=== PATIENT | male | born 1985 | race Caucasian/White ===

== ENCOUNTER 2022-03-22 19:25 | Emergency (ER) | payer OTHER, MEDICAID, SELFPAY ==
[2022-03-22 19:39] VITALS: BP 118/86; PULSE 100; RESP 18; TEMP 36.4; O2SAT 96; BMI 23.6
--- NOTE | 2022-03-22 19:42 | ED.GENADULT ---
HPI - General Adult General Chief complaint: ETOH/Substance Use <BEN Colin - Last Filed: 03/23/22 01:28> Stated complaint: ?etoh/abd pain <BEN Colin - Last Filed: 03/23/22 01:28> Time Seen by Provider: 03/22/22 19:42 <BEN Colin Last Filed: 03/23/22 01:28> Source: patient and EMS <BEN Colin Last Filed: 03/23/22 01:28> Mode of arrival: EMS <BEN Colin Last Filed: 03/23/22 01:28> Limitations: no limitations <BEN Colin Last Filed: 03/23/22 01:28> History of Present Illness HPI narrative: Patient is a 36 year old male presenting to the emergency department today with alcohol intoxication. Patient states that he went to [facility] for detox and they were concerned about his intoxication so they sent him here for evaluation. Patient denies any dizziness, lightheadedness, abdominal pain, nausea, vomiting, fever, chills, blurry vision, double vision, loss of vision, chest pain, difficulty breathing, shortness of breath, back pain, night sweats, pain with urination, increased urinary frequency, increased urinary urgency, blood in his urine or stool, syncope or a near syncopal episode, recent trauma or falls, bowel incontinence, bladder incontinence, bowel retention, bladder retention, or any other complaints at this time. <BEN Colin - Last Filed: 03/23/22 01:28> Associated symptoms: denies other symptoms <BEN Colin Last Filed: 03/23/22 01:28> Treatments prior to arrival: none <BEN Colin Last Filed: 03/23/22 01:28> Related Data Home medications: Home Medications Medication Instructions Recorded Confirmed hydroxyzine HCl 25 mg tablet 1 tab PO TID 03/23/22 03/23/22 ibuprofen 400 mg tablet 1 tab PO Q6H PRN Pain 03/23/22 03/23/22 multivitamin-iron sulfate 15 1 tab PO DAILY 03/23/22 03/23/22 mg-folic acid 400 mcg tablet (Tab-A-Katia Multivitamin w-iron) <BEN Colin Last Filed: 03/23/22 01:28> Allergies/adverse reactions: Allergies Allergy/AdvReac Type Severity Reaction Status Date / Time No Known Allergies Allergy Verified 03/22/22 20:05 <BEN Colin Last Filed: 03/23/22 01:28> Review of Systems Constitutional: Constitutional: Reports no additional constitutional complaints, Denies chills, Denies fever(s) and Denies night sweats <BEN Colin Last Filed: 03/23/22:28> Eyes: Eyes: Reports no additional eye complaints, Denies blurry vision, Denies change in vision, Denies diplopia, Denies eye discharge, Denies loss of vision and Denies eye pain <BEN Colin Last Filed: 03/23/22:28> ENT: Denies dizziness <BEN Colin Last Filed: 03/23/22 01:28> Cardiovascular: Cardiovascular: Reports no additional cardiovascular complaints, Denies chest pain, Denies lightheadedness, Denies Loss of Consciousness and Denies dyspnea <BEN Colin Last Filed: 03/23/22 01:28> Respiratory: Respiratory: Reports no additional respiratory complaints and Denies dyspnea <BEN Colin Last Filed: 03/23/22:28> Gastrointestinal: Gastrointestinal: Reports no additional gastrointestinal complaints, Denies abdominal pain, Denies melena, Denies hematochezia, Denies change in bowel habits and Denies change in stool character <BEN Colin Last Filed: 03/23/22:28> Genitourinary: Genitourinary: Reports no additional male genitourinary complaints, Denies hematuria, Denies oliguria, Denies difficulty urinating, Denies dysuria, Denies urinary frequency, Denies urinary hesitancy, Denies urinary incontinence and Denies urinary urgency <BEN Colin Last Filed: 03/23/22 01:28> Musculoskeletal: Musculoskeletal: Reports no additional musculoskeletal complaints, Denies numbness and Denies tingling <BEN Colin Last Filed: 03/23/22 01:28> Neurologic: Denies dizziness, Denies loss of vision, Denies numbness and Denies tingling <BEN Colin - Last Filed: 03/23/22 01:28> Psychiatric: Psychiatric: Reports no additional psychiatric complaints <BEN Colin - Last Filed: 03/23/22 01:28> Endocrine: Endocrine: Reports no additional endocrine complaints <BEN Colin - Last Filed: 03/23/22 01:28> Hematologic/Lymphatic: Hematologic/Lymphatic: Reports no additional hematologic/lymphatic complaints <BEN Colin - Last Filed: 03/23/22 01:28> Allergic/Immunologic: Allergic/Immunologic: Reports no additional allergic/immunologic complaints <BEN Colin - Last Filed: 03/23/22 01:28> PMFSH Past Medical History Attestation statement: The following information was validated with the patient. <BEN Colin - Last Filed: 03/23/22 01:28> Source: old records reviewed <BEN Colin - Last Filed: 03/23/22 01:28> Social History Social History: Social History Advance Directives: No Advance Directives Information Provided: Yes <BEN Colin - Last Filed: 03/23/22 01:28> Physical Exam ED Vital Signs: Vital Signs - 24 hr 03/22/22 19:39 03/23/22 06:15 03/23/22 09:55 Temperature 97.5 F 97.8 F Pulse Rate 100 100 Respiratory Rate 18 16 18 Blood Pressure 118/86 134/97 H Pulse Oximetry 96 97 Oxygen Delivery Method Room Air Room Air BMI result Body Mass Index 23.6 <BEN Colin - Last Filed: 03/23/22 01:28> Vital Signs - 24 hr 03/22/22 19:39 03/23/22 06:15 03/23/22 09:55 Temperature 97.5 F 97.8 F Pulse Rate 100 100 Respiratory Rate 18 16 18 Blood Pressure 118/86 134/97 H Pulse Oximetry 96 97 Oxygen Delivery Method Room Air Room Air BMI result Body Mass Index 23.6 <Livier Diaz MD - Last Filed: 03/23/22 11:34> Const General: cooperative, no acute distress, alert and awake <BEN Colin - Last Filed: 03/23/22 01:28> Nutritional Appearance: well nourished <Devorah Davilaamish AR - Last Filed: 03/23/22:28> Orientation/consciousness: patient oriented x3 <Devorah Davilaamish AR - Last Filed: 03/23/22:28> Limitations: no limitations <Devorah Davilaamish AR - Last Filed: 03/23/22:28> HENMT Head: Yes normal to inspection and Yes atraumatic <Devorah Davilaamish AR - Last Filed: 03/23/22:28> Ears: hearing grossly normal bilaterally and external ears normal <Devorah Davilaamish AR - Last Filed: 03/23/22:28> General nose exam: Normal external nose present, no nasal discharge noted and no epistaxis <Devorah Davilaamish AR - Last Filed: 03/23/22:28> Face and sinus: Yes normal facial exam, No abrasion and No laceration <Devorahlauren Davilaamish AR - Last Filed: 03/23/22:28> Mouth: Normal oral and palatal mucosa present, no drooling and no muffled voice <Devorah Davilaamish AR - Last Filed: 03/23/22:28> Eyes General: appearance normal, both eyes and all related structures <Devorah Davilaamish AR - Last Filed: 03/23/22:28> Periorbital: periorbital findings normal <Devorah Davilaamish AR - Last Filed: 03/23/22:28> Eyelids: Yes eyelids normal <Devorahlauren Davilaamish AR - Last Filed: 03/23/22:28> Conjunctivae: conjunctivae normal <Devorah Davilaamish AR - Last Filed: 03/23/22:28> Pupils: Equal, round and reactive pupils present <Devorah Trace PA - Last Filed: 03/23/22:28> EOM: EOMs intact bilaterally <Devorah DavilaBEN wellington - Last Filed: 03/23/22 01:28> Neck Neck: Yes normal visual inspection, Yes full ROM and Yes no lymphadenopathy <Devorah BEN Woodward - Last Filed: 03/23/22 01:28> Chest Chest palpation & inspection: normal inspection of the chest <Devorah WoodwardBEN - Last Filed: 03/23/22:28> Resp Effort & Inspection: normal respiratory effort and able to speak in complete sentences <Devorah Woodward BEN - Last Filed: 03/23/22:28> Auscultation: clear to auscultation bilaterally <Devorah Woodward PA - Last Filed: 03/23/22:28> Cardio Rate: regular rate <Devorah Woodward PA - Last Filed: 03/23/22:28> Rhythm: regular rhythm <Devorah Woodward PA - Last Filed: 03/23/22:28> GI Inspection: Yes normal to inspection <Devorah Woodward BEN - Last Filed: 03/23/22:28> Palpation (GI): Soft to palpation, not firm, nontender and no guarding <Devorah Woodward PA - Last Filed: 03/23/22:28> Neuro General: patient oriented x3 and moves all extremities <Devorah Woodward PA - Last Filed: 03/23/22:28> Cranial nerves: Yes Equal, round and reactive pupils present <Devorah Woodward PA - Last Filed: 03/23/22:28> Cognition (Neuro): normal cognition <Devorah Woodward BEN - Last Filed: 03/23/22:28> Motor exam (neuro): 5/5 motor strength present throughout <Devorah Woodward PA - Last Filed: 03/23/22:28> Sensory Exam: Normal double simultaneous stimulation for sensation <Devorah Woodward PA - Last Filed: 03/23/22:28> Coordination: [id number] test normal <Devorah Woodward PA - Last Filed: 03/23/22:28> Extrem General: Yes normal to inspection, Yes full ROM and Yes capillary refill normal <Devorah Woodward PA - Last Filed: 03/23/22:28> Psych Appearance: grossly normal <Devorah Woodward PA - Last Filed: 03/23/22 01:28> Mental Status: mental status grossly normal <Devorah WoodwardBEN - Last Filed: 03/23/22:28> Affect: normal affect <DevorahBEN Portillo - Last Filed: 03/23/22:28> Attitude: cooperative <BEN Colin - Last Filed: 03/23/22:28> Thought process: Normal thought process present <BEN Colin - Last Filed: 03/23/22:28> Thought content: Normal thought content present <BEN Colin - Last Filed: 03/23/22:28> Insight: Good insight present (Psych) <BEN Colin - Last Filed: 03/23/22:28> Course Reevaluation(s) Reevaluation #1: No events overnight. 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 <Livier Diaz MD - Last Filed: 03/23/22 11:34> Time: 11:33 <Livier Diaz MD - Last Filed: 03/23/22 11:34> Medical Decision Making MDM Narrative Medical decision making narrative: Patient is a 36 year old male presenting to the emergency department today with acute alcohol intoxication. Patient's physical exam was unremarkable. Patient's blood work was unremarkable. I explained my physical exam findings as well as all test results to the patient. I answered all questions asked by the patient. Patient is medically cleared and awaiting N/CARE team evaluation. <BEN Colin - Last Filed: 03/23/22 01:28> Differential Diagnosis Differential Diagnosis: alcohol intoxication <BEN Colin - Last Filed: 03/23/22:28> Medical Records Medical records reviewed: Yes I reviewed the patient's medical records. <BEN Colin - Last Filed: 03/23/22:28> Lab Data Lab results reviewed: Yes I reviewed the patient's lab results. <BEN Colin Last Filed: 03/23/22 01:28> Result diagrams: : 03/22/22 20:34 03/22/22 20:34 <BEN Colin - Last Filed: 03/23/22 01:28> Labs: Lab Results 03/22/22 03/22/22 03/22/22 Range/Units 20:00 20:34 20:34 WBC 6.5 (4.8-10.8) X10*3/uL RBC 5.30 (4.60-5.80) X10*6/uL Hgb 16.3 (14.0-18.0) g/dl Hct 46.2 (42.0-52.0) % MCV 87.2 (80.0-98.0) fL MCH 30.8 (27.0-33.0) pg MCHC 35.3 (31.0-36.0) g/dl RDW 13.8 (11.0-16.0) % Plt Count 204 (160-400) X10*3/uL MPV 9.0 L (9.4-12.4) fL Immature Gran % (Auto) 0.2 (0.0-0.4) % Neut % (Auto) 61.6 (45-73) % Lymph % (Auto) 28.1 (20-40) % Dickson % (Auto) 8.0 (2-11) % Eos % (Auto) 1.5 (0-4) % Baso % (Auto) 0.6 (0-2) % Lymph # (Auto) 1.8 (1.2-4.9) X10*3/uL Dickson # (Auto) 0.5 (0.1-1.2) X10*3/uL Eos # (Auto) 0.1 (0.0-0.4) X10*3/uL Baso # (Auto) 0.0 (0.0-0.2) X10*3/uL Abs Immat Gran (auto) 0.01 (0.00-0.03) X10*3/uL Absolute Neuts (auto) 4.0 (2.0-8.3) x10*3/uL Absolute Nucleated RBC 0.000 (0.0-0.012) X10*3/uL Nucleated RBC % (auto) 0.0 (0.0-0.2) /100WBC Sodium 142 (135-145) mmol/L Potassium 3.9 (3.3-5.1) mmol/L Chloride 104 (96-108) mmol/L Carbon Dioxide 28 (22-29) mmol/L Anion Gap 14 (12-20) BUN 6 L (9-16) mg/dL Creatinine 0.97 (0.5-1.4) mg/dL Estim Creat Clear Calc 110.7 Estimated GFR > 60 Random Glucose 107 (60-115) mg/dL Calcium 8.7 (8.4-10.2) mg/dL Magnesium (1.6-2.6) mg/dL Total Bilirubin 0.6 (0.0-1.0) mg/dL Direct Bilirubin (0.0-0.5) mg/dL AST 43 H (5-37) U/L ALT 41 H (0-40) U/L Alkaline Phosphatase 92 (39-117) U/L Total Protein 6.8 (6.5-8.0) g/dL Albumin 4.4 (3.5-5.0) g/dL Urine Color Urine Appearance Urine pH (5.0-8.0) Ur Specific Frontier (1.005-1.025) Urine Protein (NEG-TRACE) MG/DL Urine Glucose (UA) (NEG) MG/DL Urine Ketones (NEG) MG/DL Urine Blood (NEG) Urine Nitrite (NEG) Ur Leukocyte Esterase (NEG) Salicylates < 5.0 L (15-30) mg/dL Urine Opiates Screen (Not Detect) Urine Fentanyl Screen (Not Detect) Acetaminophen < 1 (<30) mcg/mL Ur Barbiturates Screen (Not Detect) Ur Phencyclidine Scrn (Not Detect) Ur Amphetamines Screen (Not Detect) U Benzodiazepines Scrn (Not Detect) Urine Cocaine Screen (Not Detect) U Marijuana (THC) Screen (Not Detect) Ethyl Alcohol 241 mg/dL COVID-19 ([facility]) Negative (Negative) COVID-19 Clin Com See Note 03/22/22 03/22/22 03/22/22 Range/Units 20:34 21:04 21:04 WBC (4.8-10.8) X10*3/uL RBC (4.60-5.80) X10*6/uL Hgb (14.0-18.0) g/dl Hct (42.0-52.0) % MCV (80.0-98.0) fL MCH (27.0-33.0) pg MCHC (31.0-36.0) g/dl RDW (11.0-16.0) % Plt Count (160-400) X10*3/uL MPV (9.4-12.4) fL Immature Gran % (Auto) (0.0-0.4) % Neut % (Auto) (45-73) % Lymph % (Auto) (20-40) % Dickson % (Auto) (2-11) % Eos % (Auto) (0-4) % Baso % (Auto) (0-2) % Lymph # (Auto) (1.2-4.9) X10*3/uL Dickson # (Auto) (0.1-1.2) X10*3/uL Eos # (Auto) (0.0-0.4) X10*3/uL Baso # (Auto) (0.0-0.2) X10*3/uL Abs Immat Gran (auto) (0.00-0.03) X10*3/uL Absolute Neuts (auto) (2.0-8.3) x10*3/uL Absolute Nucleated RBC (0.0-0.012) X10*3/uL Nucleated RBC % (auto) (0.0-0.2) /100WBC Sodium (135-145) mmol/L Potassium (3.3-5.1) mmol/L Chloride (96-108) mmol/L Carbon Dioxide (22-29) mmol/L Anion Gap (12-20) BUN (9-16) mg/dL Creatinine (0.5-1.4) mg/dL Estim Creat Clear Calc Estimated GFR Random Glucose (60-115) mg/dL Calcium (8.4-10.2) mg/dL Magnesium 2.0 (1.6-2.6) mg/dL Total Bilirubin 0.6 (0.0-1.0) mg/dL Direct Bilirubin 0.3 (0.0-0.5) mg/dL AST 44 H (5-37) U/L ALT 43 H (0-40) U/L Alkaline Phosphatase 94 (39-117) U/L Total Protein 6.8 (6.5-8.0) g/dL Albumin 4.3 (3.5-5.0) g/dL Urine Color YELLOW Urine Appearance CLEAR Urine pH 6.5 (5.0-8.0) Ur Specific Frontier <= 1.005 (1.005-1.025) Urine Protein NEG (NEG-TRACE) MG/DL Urine Glucose (UA) NEG (NEG) MG/DL Urine Ketones NEG (NEG) MG/DL Urine Blood NEG (NEG) Urine Nitrite NEG (NEG) Ur Leukocyte Esterase NEG (NEG) Salicylates (15-30) mg/dL Urine Opiates Screen Not Detected (Not Detect) Urine Fentanyl Screen Not Detected (Not Detect) Acetaminophen (<30) mcg/mL Ur Barbiturates Screen Not Detected (Not Detect) Ur Phencyclidine Scrn Not Detected (Not Detect) Ur Amphetamines Screen Not Detected (Not Detect) U Benzodiazepines Scrn Not Detected (Not Detect) Urine Cocaine Screen Not Detected (Not Detect) U Marijuana (THC) Screen Not Detected (Not Detect) Ethyl Alcohol mg/dL COVID-19 ([facility]) (Negative) COVID-19 Clin Com <BEN Colin - Last Filed: 03/23/22 01:28> Lab Results 03/22/22 03/22/22 03/22/22 Range/Units 20:00 20:34 20:34 WBC 6.5 (4.8-10.8) X10*3/uL RBC 5.30 (4.60-5.80) X10*6/uL Hgb 16.3 (14.0-18.0) g/dl Hct 46.2 (42.0-52.0) % MCV 87.2 (80.0-98.0) fL MCH 30.8 (27.0-33.0) pg MCHC 35.3 (31.0-36.0) g/dl RDW 13.8 (11.0-16.0) % Plt Count 204 (160-400) X10*3/uL MPV 9.0 L (9.4-12.4) fL Immature Gran % (Auto) 0.2 (0.0-0.4) % Neut % (Auto) 61.6 (45-73) % Lymph % (Auto) 28.1 (20-40) % Dickson % (Auto) 8.0 (2-11) % Eos % (Auto) 1.5 (0-4) % Baso % (Auto) 0.6 (0-2) % Lymph # (Auto) 1.8 (1.2-4.9) X10*3/uL Dickson # (Auto) 0.5 (0.1-1.2) X10*3/uL Eos # (Auto) 0.1 (0.0-0.4) X10*3/uL Baso # (Auto) 0.0 (0.0-0.2) X10*3/uL Abs Immat Gran (auto) 0.01 (0.00-0.03) X10*3/uL Absolute Neuts (auto) 4.0 (2.0-8.3) x10*3/uL Absolute Nucleated RBC 0.000 (0.0-0.012) X10*3/uL Nucleated RBC % (auto) 0.0 (0.0-0.2) /100WBC Sodium 142 (135-145) mmol/L Potassium 3.9 (3.3-5.1) mmol/L Chloride 104 (96-108) mmol/L Carbon Dioxide 28 (22-29) mmol/L Anion Gap 14 (12-20) BUN 6 L (9-16) mg/dL Creatinine 0.97 (0.5-1.4) mg/dL Estim Creat Clear Calc 110.7 Estimated GFR > 60 Random Glucose 107 (60-115) mg/dL Calcium 8.7 (8.4-10.2) mg/dL Magnesium (1.6-2.6) mg/dL Total Bilirubin 0.6 (0.0-1.0) mg/dL Direct Bilirubin (0.0-0.5) mg/dL AST 43 H (5-37) U/L ALT 41 H (0-40) U/L Alkaline Phosphatase 92 (39-117) U/L Total Protein 6.8 (6.5-8.0) g/dL Albumin 4.4 (3.5-5.0) g/dL Urine Color Urine Appearance Urine pH (5.0-8.0) Ur Specific Frontier (1.005-1.025) Urine Protein (NEG-TRACE) MG/DL Urine Glucose (UA) (NEG) MG/DL Urine Ketones (NEG) MG/DL Urine Blood (NEG) Urine Nitrite (NEG) Ur Leukocyte Esterase (NEG) Salicylates < 5.0 L (15-30) mg/dL Urine Opiates Screen (Not Detect) Urine Fentanyl Screen (Not Detect) Acetaminophen < 1 (<30) mcg/mL Ur Barbiturates Screen (Not Detect) Ur Phencyclidine Scrn (Not Detect) Ur Amphetamines Screen (Not Detect) U Benzodiazepines Scrn (Not Detect) Urine Cocaine Screen (Not Detect) U Marijuana (THC) Screen (Not Detect) Ethyl Alcohol 241 mg/dL COVID-19 ([facility]) Negative (Negative) COVID-19 Clin Com See Note 03/22/22 03/22/22 03/22/22 Range/Units 20:34 21:04 21:04 WBC (4.8-10.8) X10*3/uL RBC (4.60-5.80) X10*6/uL Hgb (14.0-18.0) g/dl Hct (42.0-52.0) % MCV (80.0-98.0) fL MCH (27.0-33.0) pg MCHC (31.0-36.0) g/dl RDW (11.0-16.0) % Plt Count (160-400) X10*3/uL MPV (9.4-12.4) fL Immature Gran % (Auto) (0.0-0.4) % Neut % (Auto) (45-73) % Lymph % (Auto) (20-40) % Dickson % (Auto) (2-11) % Eos % (Auto) (0-4) % Baso % (Auto) (0-2) % Lymph # (Auto) (1.2-4.9) X10*3/uL Dickson # (Auto) (0.1-1.2) X10*3/uL Eos # (Auto) (0.0-0.4) X10*3/uL Baso # (Auto) (0.0-0.2) X10*3/uL Abs Immat Gran (auto) (0.00-0.03) X10*3/uL Absolute Neuts (auto) (2.0-8.3) x10*3/uL Absolute Nucleated RBC (0.0-0.012) X10*3/uL Nucleated RBC % (auto) (0.0-0.2) /100WBC Sodium (135-145) mmol/L Potassium (3.3-5.1) mmol/L Chloride (96-108) mmol/L Carbon Dioxide (22-29) mmol/L Anion Gap (12-20) BUN (9-16) mg/dL Creatinine (0.5-1.4) mg/dL Estim Creat Clear Calc Estimated GFR Random Glucose (60-115) mg/dL Calcium (8.4-10.2) mg/dL Magnesium 2.0 (1.6-2.6) mg/dL Total Bilirubin 0.6 (0.0-1.0) mg/dL Direct Bilirubin 0.3 (0.0-0.5) mg/dL AST 44 H (5-37) U/L ALT 43 H (0-40) U/L Alkaline Phosphatase 94 (39-117) U/L Total Protein 6.8 (6.5-8.0) g/dL Albumin 4.3 (3.5-5.0) g/dL Urine Color YELLOW Urine Appearance CLEAR Urine pH 6.5 (5.0-8.0) Ur Specific Frontier <= 1.005 (1.005-1.025) Urine Protein NEG (NEG-TRACE) MG/DL Urine Glucose (UA) NEG (NEG) MG/DL Urine Ketones NEG (NEG) MG/DL Urine Blood NEG (NEG) Urine Nitrite NEG (NEG) Ur Leukocyte Esterase NEG (NEG) Salicylates (15-30) mg/dL Urine Opiates Screen Not Detected (Not Detect) Urine Fentanyl Screen Not Detected (Not Detect) Acetaminophen (<30) mcg/mL Ur Barbiturates Screen Not Detected (Not Detect) Ur Phencyclidine Scrn Not Detected (Not Detect) Ur Amphetamines Screen Not Detected (Not Detect) U Benzodiazepines Scrn Not Detected (Not Detect) Urine Cocaine Screen Not Detected (Not Detect) U Marijuana (THC) Screen Not Detected (Not Detect) Ethyl Alcohol mg/dL COVID-19 ([facility]) (Negative) COVID-19 Clin Com <Livier Diaz MD - Last Filed: 03/23/22 11:34> Discharge Plan Discharge Clinical Impression: Alcoholic intoxication <BEN Colin - Last Filed: 03/23/22 01:28> Patient Disposition: Xfer Other <BEN Colin - Last Filed: 03/23/22 01:28> Transfer Details: [facility] <BEN Colin - Last Filed: 03/23/22 01:28> [facility] <Livier Diaz MD - Last Filed: 03/23/22 11:34> Prescriptions: No Action ibuprofen 400 mg tablet 1 tab PO Q6H PRN (Reason: Pain) hydroxyzine HCl 25 mg tablet 1 tab PO TID Tab-A-Katia Multivitamin w-iron 15 mg iron- 400 mcg tablet 1 tab PO DAILY <BEN Colin - Last Filed: 03/23/22 01:28> Print Language: Telugu <BEN Colin - Last Filed: 03/23/22 01:28>
--- NOTE | 2022-03-22 20:18 | PC.NURSE ---
PATIENT REFUSED LABS.
[2022-03-22 20:22] LABS: COVID-19 Test Negative (Negative); IDNOW Serial# 16C4AD1C
[2022-03-22] MEDS: LORazepam 1 MG TABLET 2 MG PO (20:25)
[2022-03-22 20:40] LABS: MANUAL DIFF FLAG NO
[2022-03-22 20:49] LABS: Basophils Percent Auto 0.6 % (0-2); Eosinophils Absolute Auto 0.1 X10*3/uL (0.0-0.4); Eosinophils Percent Auto 1.5 % (0-4); Hematocrit 46.2 % (42.0-52.0); Hemoglobin 16.3 g/dl (14.0-18.0); Imm Gran Abs Auto 0.01 X10*3/uL (0.00-0.03); Imm Gran Pct Auto 0.2 % (0.0-0.4); Lymphocytes Absolute Auto 1.8 X10*3/uL (1.2-4.9); Lymphocytes Percent Auto 28.1 % (20-40); Mean Corpuscular HGB Conc 35.3 g/dl (31.0-36.0); Mean Corpuscular Hemoglobin 30.8 pg (27.0-33.0); Mean Corpuscular Volume 87.2 fL (80.0-98.0); Monocytes Absolute Auto 0.5 X10*3/uL (0.1-1.2); Neutrophils Percent Auto 61.6 % (45-73); Platelet Count 204 X10*3/uL (160-400); Red Cell Distribution Width 13.8 % (11.0-16.0); White Blood Count 6.5 X10*3/uL (4.8-10.8)
[2022-03-22 20:57] LABS: Alanine Aminotransferase 43 U/L (0-40); Albumin Level 4.3 g/dL (3.5-5.0); Alkaline Phosphatase 94 U/L (39-117); Aspartate Amino Transferase 44 U/L (5-37); Bilirubin Direct 0.3 mg/dL (0.0-0.5); Bilirubin Total 0.6 mg/dL (0.0-1.0); Total Protein 6.8 g/dL (6.5-8.0)
[2022-03-22 21:00] LABS: Acetaminophen LAB < 1 mcg/mL (<30); Alanine Aminotransferase 41 U/L (0-40); Albumin Level 4.4 g/dL (3.5-5.0); Alkaline Phosphatase 92 U/L (39-117); Anion Gap 14 (12-20); Aspartate Amino Transferase 43 U/L (5-37); Bilirubin Total 0.6 mg/dL (0.0-1.0); Blood Urea Nitrogen 6 mg/dL (9-16); Calcium 8.7 mg/dL (8.4-10.2); Carbon Dioxide 28 mmol/L (22-29); Chloride 104 mmol/L (96-108); Creatinine Clr Calc Pharmacy 110.7; Estimated Glomerular Filt Rate > 60; Ethanol 241 mg/dL; Glucose Random 107 mg/dL (60-115); Potassium 3.9 mmol/L (3.3-5.1); Salicylate < 5.0 mg/dL (15-30); Sodium 142 mmol/L (135-145); Total Protein 6.8 g/dL (6.5-8.0)
[2022-03-22 21:14] LABS: Appearance Urine CLEAR; Color Urine YELLOW; Glucose Urine UA NEG (NEG); Leukocyte Esterase Urine NEG (NEG); Nitrite Urine NEG (NEG); PH 6.5 (5.0-8.0); Specific Gravity - Urine <= 1.005 (1.005-1.025); Urine Blood NEG (NEG); Urine Ketones NEG (NEG); Urine Protein NEG (NEG-TRACE)
[2022-03-22 21:31] LABS: Amphetamine Screen Urine Not Detected (Not Detect); Barbiturates, Urine Not Detected (Not Detect); Benzodiazepines Screen Urine Not Detected (Not Detect); Cannabinoid Screen Urine Not Detected (Not Detect); Cocaine Screen Urine Not Detected (Not Detect); Fentanyl, urine Not Detected (Not Detect); Opiate Screen Urine Not Detected (Not Detect); Phencyclidine Screen Urine Not Detected (Not Detect)
--- NOTE | 2022-03-23 00:09 | MHC.CARE ---
CARE team attempted to meet with pt to assess level of risk for harm to self or others, however pt was sleeping soundly. Pt arrived to the ED via ambulance on a [facility] 12[facility] from [facility], where he was presumably doing an intake for detox admission, however pt was reportedly not making sense with questions of psychotic symptoms. Pt was intoxicated during his detox intake admission. CARE/recovery team will follow up with pt in the morning when he is able to engage in assessment.
--- NOTE | 2022-03-23 05:55 | PC.NURSE ---
Patient slept through the night, no distress observed/reported, behavior unpleasant, verbally abusive towards staff member, patient will be assessed by care team/recovery team for detox help, med rec completed/pending provider's approval, VSS, will continue to monitor
[2022-03-23 06:15] VITALS: RESP 16
--- NOTE | 2022-03-23 07:39 | PC.NURSE ---
patient appears to remain asleep at present respirations are even and unlabored patient appears in no distress
[2022-03-23 09:55] VITALS: BP 134/97; PULSE 100; RESP 18; TEMP 36.6; O2SAT 97
--- NOTE | 2022-03-23 11:27 | MHC.CARE ---
Patient is a 45 year-old single, man who was brought to [facility] by ambulance from [facility] yesterday for evaluation of either psychosis or acute alcohol intoxication. He presented for a detox intake and was noted to be behaving unusually and unable to answer questions, came to the ED with a BAL of 241. Patient slept through the night and was clear this morning to meet with the CARE Team for a risk assessment. He was alert, oriented and engaged, maintained eye contact, soft spoken, appeared his stated age, wearing a hospital gown with unremarkable hygiene and grooming unremarkable. Patient denied depression or suicidal ideation, stated he has never been hospitalized for psychiatric symptoms. Thought process appeared within normal limits, no evidence of psychosis, thought blocking or responding to internal stimuli. 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 [employer] [facility] shared that patient was evaluated by them on 03/17/22 and 03/21/22 with a similar presentation?seeking detox, intoxicated and not making sense and needing to be reseen when sober. Patient does not appear to be having a psychiatric crisis and not does not need an inpatient admission for treatment, plan is to refer to detox. Artist Suspect Ning Briones, [facility] and ED provider Dr. Diaz consulted and in agreement with plan.
== END 2022-03-23 11:45 | disposition other institution (70) ==
PROVIDERS: Physician Assistant Medical; Emergency Provider Emergency Medicine; PCP Internal Medicine
DX: F10.120 Alcohol abuse with intoxication, uncomplicated (principal); Y90.8 Blood alcohol level of 240 mg/100 ml or more; Z20.822 Contact with and (suspected) exposure to COVID-19; Z79.899 Other long term (current) drug therapy
CPT/HCPCS: 36415; 80053; 80076; 80143; 80179; 80307; 81003; 82077; 82248; 83735; 85025; 87635; 99284

== ENCOUNTER 2023-01-29 22:44 | Emergency (ER) | payer OTHER, SELFPAY ==
[2023-01-29 22:57] VITALS: BP 112/89; BP 119/81; PULSE 107; PULSE 112; RESP 18; TEMP 37; O2SAT 100; O2SAT 99; BMI 23.7
[2023-01-29 23:28] LABS: MANUAL DIFF FLAG NO
[2023-01-29 23:29] LABS: Basophils Absolute Auto 0.1 X10*3/uL (0.0-0.2); Basophils Percent Auto 1.2 % (0-2); Eosinophils Absolute Auto 0.2 X10*3/uL (0.0-0.4); Eosinophils Percent Auto 2.2 % (0-4); Hematocrit 51.1 % (42.0-52.0); Hemoglobin 17.6 g/dl (14.0-18.0); Imm Gran Abs Auto 0.02 X10*3/uL (0.00-0.03); Imm Gran Pct Auto 0.2 % (0.0-0.4); Lymphocytes Absolute Auto 2.4 X10*3/uL (1.2-4.9); Mean Corpuscular HGB Conc 34.4 g/dl (31.0-36.0); Mean Corpuscular Hemoglobin 28.8 pg (27.0-33.0); Mean Corpuscular Volume 83.6 fL (80.0-98.0); Mean Platelet Volume 8.9 fL (9.4-12.4); Monocytes Absolute Auto 0.7 X10*3/uL (0.1-1.2); Monocytes Percent Auto 8.1 % (2-11); Neutrophils Absolute Auto 4.7 x10*3/uL (2.0-8.3); Neutrophils Percent Auto 58.3 % (45-73); Platelet Count 250 X10*3/uL (160-400); Red Blood Count 6.11 X10*6/uL (4.60-5.80); Red Cell Distribution Width 13.9 % (11.0-16.0); White Blood Count 8.1 X10*3/uL (4.8-10.8)
--- NOTE | 2023-01-29 23:33 | ED.ALCOHOL ---
HPI - Alcohol General Chief Complaint: ETOH/Substance Use Stated Complaint: etoh Time Seen by Provider: 01/29/23 22:51 Source: patient and EMS Mode of arrival: EMS Limitations: other (Intoxication) History of Present Illness HPI narrative: 37-year-old male with history of alcohol abuse presents with acute alcohol intoxication. He was found outside of [employer] restaurant intoxicated. Apparently had an entire sleeve of vodka. Patient reports heavy drinking on a daily basis. He reports having been to detox in the past. Denies suicide or homicidal ideation. Denies any additional drug use. He denies any anxiety, depression. His symptoms appear to be worsened by alcohol ingestion. There is no clear relieving features. His symptoms are described as severe EMS was contacted following please arrival. His blood sugar was in the 80s. He was otherwise hemodynamically stable. He has been cooperative ever since. Patient is requesting detox. Related Data Home Medications Medication Instructions Recorded Confirmed hydroxyzine HCl 25 mg tablet 1 tab PO TID 03/23/22 03/23/22 ibuprofen 400 mg tablet 1 tab PO Q6H PRN Pain 03/23/22 03/23/22 multivitamin-iron sulfate 15 1 tab PO DAILY 03/23/22 03/23/22 mg-folic acid 400 mcg tablet (Tab-A-Katia Multivitamin w-iron) Allergies Allergy/AdvReac Type Severity Reaction Status Date / Time No Known Allergies Allergy Verified 03/22/22 20:05 Review of Systems Review of Systems: CONSTITUTIONAL: Denies weight loss, fever and chills. HEENT: Denies changes in vision and hearing. RESPIRATORY: Denies SOB and cough. CV: Denies palpitations no CP. GI: Denies abdominal pain, nausea, vomiting and diarrhea. : Denies dysuria and urinary frequency. MSK: Denies myalgia and joint pain. SKIN: Denies rash and pruritus. NEUROLOGICAL: Denies headache and syncope. PSYCHIATRIC: Denies recent changes in mood. Denies anxiety and depression. All other ROS are negative unless in HPI PMFSH Social History Social History Alcohol intake: current Alcohol intake frequency: 3 or more drinks per day Alcohol type: hard liquor Smoked in Last 30 Days: Yes Use of substances other than those prescribed or required for medical reasons: No Any prior treatment program specific to substance use: No Advance Directives: No Advance Directives Information Provided: No Physical Exam ED Vital Signs: Vital Signs - 24 hr 01/29/23 22:57 01/30/23 00:03 01/30/23 03:01 Temperature 98.6 F 97.9 F Pulse Rate 107 H 92 82 Respiratory Rate 18 18 18 Blood Pressure 119/81 121/77 104/65 Pulse Oximetry 100 97 93 Oxygen Delivery Method Room Air Room Air Room Air BMI result Body Mass Index 23.7 GEN: Well developed, no acute distress, alert, disoriented, slurred speech, smell of alcohol HEENT: Normocephalic, atraumatic, normal external ears, nose appears normal, no oropharyngeal edema or exudates Eyes: Normal to appearance Neck: Supple, no lymphadenopathy Respiratory: Talks in complete sentences, no respiratory distress, clear to auscultation bilaterally Cardiovascular: Regular rate and rhythm, no murmurs rubs or gallops Abdomen: Soft, nontender, nondistended, no guarding, no rebound Back: No CVA tenderness Extremities: No clubbing cyanosis or edema Neurologic: No focal neurologic deficits, cranial nerves 2-12 intact, strength is 5/5 bilaterally Skin: No rash Course Course Course Narrative: Patient presents with acute alcohol intoxication requesting detox. Patient reportedly has a history of alcohol abuse. Patient denies any complaints. Not suicidal or homicidal. We will medically clear the patient. Will have care team evaluate the patient for possible detox or other additional community resources. Reevaluation(s) Reevaluation #1: Patient will be placed in physician observation at this time pending sobriety in care team evaluation. Time: 23:35 Reevaluation #2: Patient is very eager to be discharged, patient has not been seen by the care team. He has been able to tolerate p.o. without difficulty. He is anxious as he needs to get back to [place] before 10am to get his belongings. He reports that he is going to find detox places in [place]. Patient clinically sober and able to make these decisions. No SI or HI. He is not in alcohol withdrawal. Patient stable for discharge Time: 07:35 Medical Decision Making Medical Decision Making MDM Narrative: 37-year-old male presents with acute alcohol intoxication, alcohol abuse requesting detox. Examination was consistent with and intoxicated male in no acute distress. There is no evidence of trauma. He is cooperative. Patient will need to have medical clearance. We will check an alcohol level as well as a toxicology screen. If he demonstrates any evidence of alcohol withdrawal, could consider Librium or Ativan. Differential Diagnosis Differential Diagnoses: The differential diagnosis associated with the presentation includes (Alcohol intoxication, alcohol abuse, depression, anxiety, mood disorder) Admission/Observation Consideration of admission/observation: Escalation of care including admission/observation considered Lab Data MDM Lab Attestation statement: I reviewed the patient's lab results. 01/29/23 23:24 01/29/23 23:24 Labs: Lab Results 01/29/23 01/29/23 01/29/23 Range/Units 00:05 23:24 23:24 WBC 8.1 (4.8-10.8) X10*3/uL RBC 6.11 H (4.60-5.80) X10*6/uL Hgb 17.6 (14.0-18.0) g/dl Hct 51.1 (42.0-52.0) % MCV 83.6 (80.0-98.0) fL MCH 28.8 (27.0-33.0) pg MCHC 34.4 (31.0-36.0) g/dl RDW 13.9 (11.0-16.0) % Plt Count 250 (160-400) X10*3/uL MPV 8.9 L (9.4-12.4) fL Immature Gran % (Auto) 0.2 (0.0-0.4) % Neut % (Auto) 58.3 (45-73) % Lymph % (Auto) 30.0 (20-40) % [place] % (Auto) 8.1 (2-11) % Eos % (Auto) 2.2 (0-4) % Baso % (Auto) 1.2 (0-2) % Lymph # (Auto) 2.4 (1.2-4.9) X10*3/uL [place] # (Auto) 0.7 (0.1-1.2) X10*3/uL Eos # (Auto) 0.2 (0.0-0.4) X10*3/uL Baso # (Auto) 0.1 (0.0-0.2) X10*3/uL Abs Immat Gran (auto) 0.02 (0.00-0.03) X10*3/uL Absolute Neuts (auto) 4.7 (2.0-8.3) x10*3/uL Absolute Nucleated RBC 0.000 (0.0-0.012) X10*3/uL Nucleated RBC % (auto) 0.0 (0.0-0.2) /100WBC Sodium 146 H (135-145) mmol/L Potassium 3.7 (3.3-5.1) mmol/L Chloride 109 H (96-108) mmol/L Carbon Dioxide 26 (22-29) mmol/L Anion Gap 15 (12-20) BUN 11 (9-16) mg/dL Creatinine 1.08 (0.5-1.4) mg/dL Estim Creat Clear Calc 98.5 Estimated GFR > 60 Random Glucose 94 (60-115) mg/dL Calcium 9.6 D (8.4-10.2) mg/dL Total Bilirubin 0.6 (0.0-1.0) mg/dL AST 48 H (5-37) U/L ALT 32 (0-40) U/L Alkaline Phosphatase 102 (39-117) U/L Total Protein 7.5 (6.5-8.0) g/dL Albumin 4.8 (3.5-5.0) g/dL Urine Opiates Screen (Not Detect) Urine Fentanyl Screen (Not Detect) Ur Barbiturates Screen (Not Detect) Ur Phencyclidine Scrn (Not Detect) Ur Amphetamines Screen (Not Detect) U Benzodiazepines Scrn (Not Detect) Urine Cocaine Screen (Not Detect) U Marijuana (THC) Screen (Not Detect) Ethyl Alcohol 340 H* mg/dL COVID-19 ([facility]) Negative (Negative) COVID-19 Clin Com See Note 01/30/23 Range/Units 00:05 WBC (4.8-10.8) X10*3/uL RBC (4.60-5.80) X10*6/uL Hgb (14.0-18.0) g/dl Hct (42.0-52.0) % MCV (80.0-98.0) fL MCH (27.0-33.0) pg MCHC (31.0-36.0) g/dl RDW (11.0-16.0) % Plt Count (160-400) X10*3/uL MPV (9.4-12.4) fL Immature Gran % (Auto) (0.0-0.4) % Neut % (Auto) (45-73) % Lymph % (Auto) (20-40) % [place] % (Auto) (2-11) % Eos % (Auto) (0-4) % Baso % (Auto) (0-2) % Lymph # (Auto) (1.2-4.9) X10*3/uL [place] # (Auto) (0.1-1.2) X10*3/uL Eos # (Auto) (0.0-0.4) X10*3/uL Baso # (Auto) (0.0-0.2) X10*3/uL Abs Immat Gran (auto) (0.00-0.03) X10*3/uL Absolute Neuts (auto) (2.0-8.3) x10*3/uL Absolute Nucleated RBC (0.0-0.012) X10*3/uL Nucleated RBC % (auto) (0.0-0.2) /100WBC Sodium (135-145) mmol/L Potassium (3.3-5.1) mmol/L Chloride (96-108) mmol/L Carbon Dioxide (22-29) mmol/L Anion Gap (12-20) BUN (9-16) mg/dL Creatinine (0.5-1.4) mg/dL Estim Creat Clear Calc Estimated GFR Random Glucose (60-115) mg/dL Calcium (8.4-10.2) mg/dL Total Bilirubin (0.0-1.0) mg/dL AST (5-37) U/L ALT (0-40) U/L Alkaline Phosphatase (39-117) U/L Total Protein (6.5-8.0) g/dL Albumin (3.5-5.0) g/dL Urine Opiates Screen Not Detected (Not Detect) Urine Fentanyl Screen Not Detected (Not Detect) Ur Barbiturates Screen Not Detected (Not Detect) Ur Phencyclidine Scrn Not Detected (Not Detect) Ur Amphetamines Screen Not Detected (Not Detect) U Benzodiazepines Scrn POSITIVE H (Not Detect) Urine Cocaine Screen Not Detected (Not Detect) U Marijuana (THC) Screen Not Detected (Not Detect) Ethyl Alcohol mg/dL COVID-19 ([facility]) (Negative) COVID-19 Clin Com Independent Historian Clinical information obtained from an independent historian. History obtained from or confirmed by: EMS Prescription Management I considered prescription management with: Other (Benzodiazepines) Chronic Conditions Patient?s care impacted by: Other (Alcohol abuse) Discharge Plan Discharge Clinical Impression: Alcoholic intoxication Patient Disposition: Still a Patient Additional Instructions: Your not seen by the care team as you refused to see them this morning for any resources for detox. Stop drinking alcohol. If any new or worsening symptoms occur please return for re-evaluation. Prescriptions: No Action ibuprofen 400 mg tablet 1 tab PO Q6H PRN (Reason: Pain) hydroxyzine HCl 25 mg tablet 1 tab PO TID Tab-A-Katia Multivitamin w-iron 15 mg iron- 400 mcg tablet 1 tab PO DAILY
[2023-01-29 23:45] LABS: Alanine Aminotransferase 32 U/L (0-40); Albumin Level 4.8 g/dL (3.5-5.0); Alkaline Phosphatase 102 U/L (39-117); Anion Gap 15 (12-20); Aspartate Amino Transferase 48 U/L (5-37); Bilirubin Total 0.6 mg/dL (0.0-1.0); Blood Urea Nitrogen 11 mg/dL (9-16); Calcium 9.6 mg/dL (8.4-10.2); Carbon Dioxide 26 mmol/L (22-29); Chloride 109 mmol/L (96-108); Creatinine Clr Calc Pharmacy 98.5; Estimated Glomerular Filt Rate > 60; Ethanol 340 mg/dL; Glucose Random 94 mg/dL (60-115); Potassium 3.7 mmol/L (3.3-5.1); Sodium 146 mmol/L (135-145); Total Protein 7.5 g/dL (6.5-8.0)
[2023-01-30 00:03] VITALS: BP 121/77; PULSE 92; RESP 18; TEMP 36.6; O2SAT 97
[2023-01-30 00:15] LABS: COVID-19 Test Negative (Negative); IDNOW Serial# 6674DD1D
[2023-01-30 00:35] LABS: Amphetamine Screen Urine Not Detected (Not Detect); Barbiturates, Urine Not Detected (Not Detect); Benzodiazepines Screen Urine POSITIVE (Not Detect); Cannabinoid Screen Urine Not Detected (Not Detect); Cocaine Screen Urine Not Detected (Not Detect); Fentanyl, urine Not Detected (Not Detect); Opiate Screen Urine Not Detected (Not Detect); Phencyclidine Screen Urine Not Detected (Not Detect)
[2023-01-30 03:01] VITALS: BP 104/65; PULSE 82; RESP 18; O2SAT 93
--- NOTE | 2023-01-30 07:56 | PC.NURSE ---
alert speech clear, skin wpd, steady gait, states he is going to detox in [place] and does not wish to talk w care team, anxious to leave [facility], vitals not rechecked as pt refused
[2023-01-30 09:37] LABS: CT PCR NOT DETECTED (Not Detect.); NG PCR NOT DETECTED (Not Detect.)
== END 2023-01-30 07:59 | disposition still patient (30) ==
PROVIDERS: Emergency Provider Emergency Medicine
DX: F10.220 Alcohol dependence with intoxication, uncomplicated (principal); Y90.8 Blood alcohol level of 240 mg/100 ml or more; Z20.822 Contact with and (suspected) exposure to COVID-19; Z79.899 Other long term (current) drug therapy
CPT/HCPCS: 0353U; 36415; 80053; 80307; 85025; 87635; 99283; 99285

== ENCOUNTER 2023-09-13 01:57 | Emergency (ER) | payer OTHER, SELFPAY ==
[2023-09-13 02:13] VITALS: BP 109/71; PULSE 121; RESP 16; TEMP 37; O2SAT 96; BMI 23.7
[2023-09-13 02:29] LABS: MANUAL DIFF FLAG NO
[2023-09-13 02:30] LABS: Basophils Absolute Auto 0.1 X10*3/uL (0.0-0.2); Basophils Percent Auto 0.8 % (0-2); Eosinophils Absolute Auto 0.1 X10*3/uL (0.0-0.4); Eosinophils Percent Auto 1.6 % (0-4); Hematocrit 48.7 % (42.0-52.0); Imm Gran Abs Auto 0.01 X10*3/uL (0.00-0.03); Imm Gran Pct Auto 0.1 % (0.0-0.4); Lymphocytes Absolute Auto 2.1 X10*3/uL (1.2-4.9); Lymphocytes Percent Auto 29.4 % (20-40); Mean Corpuscular HGB Conc 34.9 g/dl (31.0-36.0); Mean Corpuscular Hemoglobin 29.6 pg (27.0-33.0); Mean Corpuscular Volume 84.8 fL (80.0-98.0); Monocytes Absolute Auto 0.5 X10*3/uL (0.1-1.2); Monocytes Percent Auto 7.2 % (2-11); Neutrophils Absolute Auto 4.3 x10*3/uL (2.0-8.3); Neutrophils Percent Auto 60.9 % (45-73); Platelet Count 196 X10*3/uL (160-400); Red Blood Count 5.74 X10*6/uL (4.60-5.80); Red Cell Distribution Width 12.2 % (11.0-16.0); White Blood Count 7.1 X10*3/uL (4.8-10.8)
[2023-09-13 02:50] LABS: Alanine Aminotransferase 95 U/L (0-40); Albumin Level 4.6 g/dL (3.5-5.0); Alkaline Phosphatase 81 U/L (39-117); Anion Gap 17 (12-20); Aspartate Amino Transferase 89 U/L (5-37); Bilirubin Total 0.5 mg/dL (0.0-1.0); Blood Urea Nitrogen 12 mg/dL (9-16); Calcium 9.1 mg/dL (8.4-10.2); Carbon Dioxide 21 mmol/L (22-29); Chloride 110 mmol/L (96-108); Creatinine Clr Calc Pharmacy 106.5; Estimated Glomerular Filt Rate > 60; Ethanol 223 mg/dL; Glucose Random 95 mg/dL (60-115); Potassium 3.8 mmol/L (3.3-5.1); Sodium 144 mmol/L (135-145); Total Protein 7.4 g/dL (6.5-8.0)
== END 2023-09-13 05:08 | disposition left against medical advice (07) ==
PROVIDERS: Emergency Provider Emergency Medicine
DX: F10.90 Alcohol use, unspecified, uncomplicated (principal); Y90.7 Blood alcohol level of 200-239 mg/100 ml
CPT/HCPCS: 36415; 80053; 80307; 85025; 99281; 99283